=== PATIENT | female | born 1955 | race Asian ===

== ENCOUNTER 2017-12-09 07:05 | Day surgery (SDC) | payer OTHER ==
[2017-12-09] MEDS ORDERED: FENTAnyl 50 MCG/ML VIAL (09:19)
[2017-12-09] MEDS ORDERED: MIDAZOLAM 1 MG/ML 2 ML INJ ×2 (09:20)
== END 2017-12-09 10:10 | disposition home or self-care (01) ==
LOC: GIL 07:05
DX: Z86.010 Personal history of colon polyps (principal); K64.8 Other hemorrhoids; K64.4 Residual hemorrhoidal skin tags
CPT/HCPCS: 45378